=== PATIENT | female | born 1940 | race Caucasian/White ===

== ENCOUNTER 2018-08-01 11:08 | Emergency (ER) | payer MEDICARE, MEDICAID, SELFPAY ==
[2018-08-01 11:12] VITALS: BP 108/63; PULSE 76; RESP 14; TEMP 36.5; O2SAT 96
[2018-08-01 11:15] VITALS: RESP 16
--- NOTE | 2018-08-01 11:25 | DI.CT_ITS ---
SYMPTOMS/DIAGNOSIS: CONFUSION, AGGRESSIVE, ? ACUTE CVA, EPIGASTRIC ABD PAIN, NAUSEA, DIARRHEA, ? COLITIS/SBO/CHOLECYSTITIS/PANCREATITIS CRANIAL CT: Noncontrast cranial CT was performed. There is a moderate generalized cerebral atrophy and there are patchy areas of decreased attenuation in periventricular white matter consistent with microvascular ischemic changes. There is no evidence of acute intracranial hemorrhage, mass effect or midline shift. The paranasal sinuses and mastoid air cells appear well aerated as visualized. The orbital and temporal bone structures appear intact. CONCLUSION: No evidence of acute intracranial process. ABDOMINAL AND PELVIC CT: CT examination of the abdomen and pelvis was performed without contrast administration. Images obtained through the lung bases show changes of COPD and question minimal streaky left basilar consolidation. No gross free intraperitoneal air is seen. Note is made of Gamma nail in place in the proximal left femur. Small splenic granulomata are noted. The liver is grossly unremarkable by noncontrast criteria. The pancreas appears intact. No biliary dilatation seen. The adrenals and kidneys are unremarkable by noncontrast criteria. No evidence of urinary tract obstruction or calcification. There is an approximately 4.5 - 4.7 cm in diameter abdominal aortic aneurysm which appears to be infrarenal. No significant abdominal wall hernia seen. No significant abdominal or pelvic adenopathy seen. The appendix appears normal. There is no evidence of bowel obstruction or diverticulitis. CONCLUSION: Infrarenal abdominal aortic aneurysm measuring about 45 x 47 mm in diameter. No other significant acute findings.
--- NOTE | 2018-08-01 11:48 | W.ED.GENAD ---
Discharge Plan Disposition Patient Disposition: HOME Condition: Stable Discharge Details Chief Complaint: AMS/LOC Clinical Impression: Pneumonia, Verbally abusive behavior, History of dementia Primary Care Provider: None,None ED Provider: Charity Gomez Home Meds and New Rx's Prescriptions: New levofloxacin [Levaquin] 750 mg tablet 750 mg PO DAILY 4 Days Qty: 4 RF: 0 Continued multivitamin Tablet 1 tab PO DAILY RF: 0 acetaminophen 325 mg Tablet 650 mg PO PRN PRNRF: 0 aspirin 81 mg Tablet,Delayed Release (Dr/Ec) 81 mg PO DAILY RF: 0 pantoprazole 20 mg Tablet,Delayed Release (Dr/Ec) 20 mg PO DAILY RF: 0 bisacodyl [Biscolax] 10 mg Suppository 10 mg CO PRN PRNRF: 0 mirtazapine 15 mg Tablet 15 mg PO 1800 RF: 0 polyethylene glycol 3350 [Miralax] 17 gram/dose Powder 17 g PO DAILY RF: 0 Eliquis 5 mg Tablet 5 mg PO BID RF: 0 Discharge Instructions Instructions: Pneumonia (ED) Discharge Data Discharge Physician: Charity Gomez Medical Decision Making 78-year-old female with a history of dementia, COPD, laryngeal and uterine cancer, GERD, CKD, pulmonary embolism on Eliquis who is oriented to person at baseline from the [facility] after transfer there 2 days ago from [facility] status post a hip fracture who presents for confusion, increasing aggressive and violent behavior and poor p.o. intake. Patient complains of nausea and diarrhea with urinary frequency. She denies any abdominal pain to me but had epigastric tenderness to palpation. She was also coughing yellow sputum. Vitals within normal limits. Remainder of ENT exam within normal limits. Lungs clear to auscultation. She has epigastric tenderness to palpation but otherwise her abdomen is soft without rebound rigidity or guarding. No lower extremity edema. Patient appears at her mental status baseline per the [facility]. She appears calm upon my evaluation. Will place an IV, bolus IV fluids, labs, urinalysis, CT head, chest x-ray and CT abdomen and pelvis. 1150 --patient verbally aggressive and swearing at staff while attempting to place an IV. 1500 --patient has remained calm throughout stay in the ED. She has not been physically aggressive. She tolerated straight urinary catheter placement without any physical aggression. Labs and imaging reviewed. Normal white blood cell count to light sites. Negative troponin. Urinalysis negative. CT head negative. CT abdomen and pelvis notes diverticulosis and possibly mild diverticulitis in the appropriate clinical setting. Patient had no left lower quadrant tenderness, and normal white blood cell count so doubt diverticulitis at this time. Chest x-ray notes a possible left base pneumonia versus atelectasis. As patient had cough with yellow sputum, will treat for pneumonia. Discussed with Dr. Tracy -would like patient to have a mental health evaluation. States that patient was sent to the ED for concern of her verbally aggressive behavior as she stated to her roommate that she was going to slit her throat. Discussed that patient has dementia and has been verbally aggressive at times here but no physical aggression. She appears appropriate for discharge back to the [facility]. Dr. Tracy is okay with this plan as long as patient has a mental health evaluation first. Able to obtain the records from [facility] and patient had a left hip fracture which was repaired on 05/04/18. 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 She was transferred to the [facility] on 07/30/18. 1640 --mental health evaluated patient at bedside and does not find patient to be a risk to herself or others. She denies any suicidal ideation. She does not have the intent or means to carry out any physical injury to others. She has a history of dementia and is delusional with her statements and thought processes but otherwise had been relaxed and calm when speaking with mental health with no signs of physical aggression. Patient could likely benefit from being in a single room at the [facility]. There is also consideration for medications that can help with her behavior such as Ativan. Patient is cleared for discharge back. She was given 1 dose of Levaquin here as well as a prescription. She was able to eat a full meal here and no vomiting. Medical Records Medical records reviewed: Yes I reviewed the patient's medical records. Imaging Data Radiologic Study: Radiologist's impression: CT Head Without Contrast EXAM DATE/TIME: 08/01/2018 11:28 AM FINDINGS: Brain: No acute intracranial hemorrhage. There is mild diffuse heterogeneity of the white matter attenuation, consistent with chronic white matter ischemic changes. Mild cerebral atrophy Ventricles: Normal. No ventriculomegaly. Bones/joints: Unremarkable. No acute fracture. Sinuses: Visualized sinuses are unremarkable. No acute sinusitis. Mastoid air cells: Visualized mastoid air cells are unremarkable. No mastoid effusion. Soft tissues: Unremarkable. IMPRESSION: No acute intracranial hemorrhage. XR Chest, 2 Views EXAM DATE/TIME: 08/01/2018 11:28 AM FINDINGS: Lungs: Mild opacities in the left base may represent mild atelectasis or pneumonia. Pleural space: Unremarkable. No pleural effusion. No pneumothorax. Heart/Mediastinum: Unremarkable. No cardiomegaly. Vasculature: Tortuous aorta Bones/joints: Unremarkable. IMPRESSION: Mild opacities in the left base may represent mild atelectasis or pneumonia. CT Abdomen and Pelvis Without Contrast EXAM DATE/TIME: 08/01/2018 1:31 PM FINDINGS: Lower thorax: Mitral valve calcification Aortic valve calcification ABDOMEN: Liver: Normal. No mass. Gallbladder and bile ducts: Normal. No calcified stones. No ductal dilation. Pancreas: Normal. No ductal dilation. Spleen: Normal. No splenomegaly. Adrenals: Left adrenal adenoma Kidneys and ureters: Bilateral renal atrophy. Nonobstructing left renal calculus Stomach and bowel: Diverticulosis of the rectosigmoid. Mild pericolonic inflammatory changes may represent mild diverticulitis in the appropriate clinical setting. Appendix: No evidence of appendicitis. PELVIS: Bladder: Unremarkable as visualized. Reproductive: Unremarkable as visualized. ABDOMEN and PELVIS: Intraperitoneal space: Normal. No free air. No significant fluid collection. Bones/joints: Internal fixation device in the left hip Soft tissues: Unremarkable. Vasculature: Unruptured infrarenal abdominal aortic aneurysm 4.5 x 4.7 cm. 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 There may be stenosis in these regions.. Lymph nodes: Normal. No enlarged lymph nodes. IMPRESSION: 1. Unruptured infrarenal abdominal aortic aneurysm 4.5 x 4.7 cm. 2. Diverticulosis of the rectosigmoid. Mild pericolonic inflammatory changes may represent mild diverticulitis in the appropriate clinical setting. 3. 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 There may be stenosis in these regions.. Lab Data Lab results reviewed: Yes I reviewed the patient's lab results. ECG Data Attestation: I personally reviewed and interpreted this ECG (s) as follows: Interpretation: rate of 74, sinus, no acute ST elevation or depression. QTc 457. QRS 90. HPI General Mode of arrival: ambulatory. Date/Time Provider Initiated Documentation: 08/01/18 11:12. Limitations to Documentation: no limitations. Information obtained by: patient. HPI Narrative: Patient is a 78-year-old female with a history of vascular dementia, COPD, PE on Eliquis, laryngeal cancer, uterine cancer, chronic kidney disease who had a recent hospital admission at [facility] for a hip fracture and was transferred to the [facility] on Thursday 2 days ago. She presents from the [facility] for confusion, worsening aggressive and violent behavior, and poor p.o. intake. She is oriented to person at baseline and this is unchanged per the [facility]. Patient complaints at this time include nausea, diarrhea 4-5 times daily for the past 2 weeks, and no vomiting. She also admits to intermittent headache. She also admits to urinary frequency. She denied any abdominal pain but had epigastric tenderness on exam. She denies any chest pain or shortness of breath. Related Data Home Medications Medication Instructions Recorded Confirmed Eliquis 5 mg PO BID 08/01/18 08/01/18 acetaminophen 650 mg PO PRN PRN 08/01/18 08/01/18 aspirin 81 mg PO DAILY 08/01/18 08/01/18 bisacodyl [Biscolax] 10 mg CO PRN PRN 08/01/18 08/01/18 levofloxacin [Levaquin] 750 mg PO DAILY 4 Days #4 tab 08/01/18 mirtazapine 15 mg PO 1800 08/01/18 08/01/18 multivitamin 1 tab PO DAILY 08/01/18 08/01/18 pantoprazole 20 mg PO DAILY 08/01/18 08/01/18 polyethylene glycol 3350 [Miralax] 17 g PO DAILY 08/01/18 08/01/18 Previous Rx's Medication Instructions Recorded levofloxacin [Levaquin] 750 mg PO DAILY 4 Days #4 tab 08/01/18 Allergies Allergy/AdvReac Type Severity Reaction Status Date / Time No Known Allergies Allergy Unverified 08/01/18 11:24 General Stated Complaint: AMS/LOC MARIO: 3 Review of Systems Review of Systems All systems reviewed & are unremarkable except as noted in HPI and below Constitutional Reports as per HPI, Denies chills and Denies fever(s) Eyes Denies blurry vision ENT Denies dizziness, Denies sore throat and Denies throat swelling Cardiovascular Denies chest pain and Denies dyspnea Respiratory Denies cough and Denies dyspnea Gastrointestinal Reports abdominal pain, Reports diarrhea and Reports vomiting Genitourinary Denies hematuria, Reports urinary frequency and Denies dysuria Musculoskeletal Denies back pain and Denies numbness Integumentary/Breasts Denies lesions and Denies rash Neurologic Denies dizziness, Denies focal weakness and Denies numbness Allergic/Immunologic Denies throat swelling [facility] Medical History Chronic kidney disease (Acute) Laryngeal cancer (Acute) Uterine cancer (Acute) COPD (chronic obstructive pulmonary disease) (Chronic) Dementia (Chronic) GERD (gastroesophageal reflux disease) (Chronic) Pulmonary embolism (Chronic) Surgical History H/O bilateral salpingo-oophorectomy (Acute) History of hysterectomy (Chronic) Social History Smoking/Tobacco Use Status: Former Tobacco Use Details: unknown Drug use: Never Exam Const General: cooperative and no acute distress Orientation: alert, awake, oriented to person, not oriented to place and not oriented to time HENMT Head: normal to inspection Ears: hearing grossly normal bilaterally, external ears normal and TM's normal bilaterally General nose exam: external nose normal Face and sinus: normal facial exam Mouth: oral mucosae normal Throat: posterior oropharynx normal Eyes General: appearance normal, both eyes and all related structures Eyelids: eyelids normal Pupils: PERRL EOM: EOM intact bilaterally Neck Neck: normal visual inspection Lymphatic: no lymphadenopathy noted Chest Chest: normal inspection of the chest Resp Effort & Inspection: normal respiratory effort and able to speak in complete sentences Auscultation: clear to auscultation bilaterally Cardio Rate: regular rate Rhythm: regular rhythm GI Inspection: normal to inspection Palpation: soft, not firm, no guarding, no hepatosplenomegaly, no masses and tender Auscultation: normal bowel sounds Back/Spine/Pelvis Back: no CVA tenderness Skin General skin exam: no rashes or lesions noted Neuro General: alert and awake Cognition: normal cognition Speech: speech normal Gait: normal gait Motor: muscle tone normal throughout Sensory Exam: no sensory deficits noted Extrem General: normal to inspection, full ROM and no edema Psych Appearance: grossly normal Mental Status: mental status grossly normal Speech and Movement: speech and movement normal Affect: normal affect Thought Process: normal Course Vital Signs Temperature 97.7 F 08/01/18 11:12 Pulse 76 08/01/18 11:12 Respiratory Rate 14 08/01/18 11:12 Blood Pressure 108/63 08/01/18 11:12 Pulse Oximetry 96 08/01/18 11:12 Temperature 97.7 F 08/01/18 11:12 Temperature Source Temporal Artery Scan 08/01/18 11:12 Pulse 76 08/01/18 11:12 Respiratory Rate 16 08/01/18 11:15 Respiratory Effort Non-Labored 08/01/18 11:17 Respiratory Depth Normal 08/01/18 11:15 Respiratory Pattern Normal 08/01/18 11:15 Blood Pressure 108/63 08/01/18 11:12 Blood Pressure Position Sitting 08/01/18 11:12 Pulse Oximetry 96 08/01/18 11:12 Oxygen Delivery Method Room Air 08/01/18 11:12 Oxygen Flow Rate 0 08/01/18 11:12 Pain Level 0 08/01/18 11:12
[2018-08-01 11:52] LABS: Abs Immature Grans 0.01 k/cumm (0.0-0.09); Absolute Basophil Count 0.03 k/cumm (0.0-0.2); Absolute Eosinophil Count 0.19 k/cumm (0.0-0.7); Absolute Lymphocyte Count 1.16 k/cumm (1.2-3.4); Absolute Monocyte Count 0.71 k/cumm (0.11-0.7); Absolute Neutrophil Count 3.84 k/cumm (1.2-6.7); Basophils % 0.5; Eosinophils % 3.2; HGB 13.1 g/dL (12.0-15.5); Immature Grans % 0.2; Lymphocytes % 19.5; Mean Corp. HGB Concentration 32.8 g/dL (32.0-36.0); Mean Corpuscular Hemoglobin 31.3 pg (27.0-33.0); Mean Corpuscular Volume 95.5 fL (80-95); Mean Platelet Volume 9.9 fL (8.0-11.0); Neutrophils % 64.6; Platelet Count 238 x1000/uL (130-400); RBC 4.19 m/cumm (4.00-5.20); White Blood Cell Count 5.94 k/cumm (4.4-10.8)
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
[2018-08-01 12:04] LABS: ALT 11 U/L (12-78); AST 19 U/L (15-37); Albumin 3.5 g/dL (3.4-5.0); Alkaline Phosphatase 102 U/L (46-116); Anion Gap 11.7 mmol/L (3-11); BUN 24 mg/dL (7-18); Bilirubin, Total 0.7 mg/dL (0.2-1.0); CO2 23.3 mmol/L (21.0-32.0); CREATININE 1.23 mg/dL (0.55-1.02); Calcium 9.9 mg/dL (8.5-10.1); Chloride 105 mmol/L (98-107); Estimated GFR 42.23 (mL/min/1.73m2); Glucose 105 mg/dL (70-100); Lipase 107 U/L (73-393); Potassium 4.2 mmol/L (3.5-5.1); Sodium 140 mmol/L (136-145); Total Protein 7.4 g/dL (6.4-8.2)
[2018-08-01 12:18] LABS: Troponin I < 0.02 ng/mL (0.00-0.06)
[2018-08-01 12:25] LABS: Bilirubin Negative (Negative); Blood Negative (Negative); Clarity Clear; Glucose Negative (Negative); Ketones Negative (Negative); Leukocyte Esterase Negative (Negative); Nitrite Negative (Negative); Specific Gravity 1.015 (1.005-1.025); Urobilinogen 0.2 EU/dL (Up TO 0.2)
--- NOTE | 2018-08-01 14:00 | DI.RAD_ITS ---
SYMPTOMS/DIAGNOSIS: COUGH, ? PNEUMONIA AP AND LATERAL CHEST: The heart is at the upper limits of normal in size. There are apparent diffuse changes of COPD, minimal left basilar infiltrate is suspected. No pleural effusion seen. CONCLUSION: Question left basilar infiltrate, appropriate follow up studies requested.
--- NOTE | 2018-08-01 14:20 | DI.VRAD_ITS ---
EXAM: CT Head Without Contrast EXAM DATE/TIME: 08/01/2018 11:28 AM CLINICAL HISTORY: 78 years old, female; Signs and symptoms; Altered mental status/memory loss TECHNIQUE: Imaging protocol: Axial computed tomography images of the head/brain without contrast. Coronal and sagittal reformatted images were created and reviewed. COMPARISON: No relevant prior studies available. FINDINGS: Brain: No acute intracranial hemorrhage. There is mild diffuse heterogeneity of the white matter attenuation, consistent with chronic white matter ischemic changes. Mild cerebral atrophy Ventricles: Normal. No ventriculomegaly. Bones/joints: Unremarkable. No acute fracture. Sinuses: Visualized sinuses are unremarkable. No acute sinusitis. Mastoid air cells: Visualized mastoid air cells are unremarkable. No mastoid effusion. Soft tissues: Unremarkable. IMPRESSION: No acute intracranial hemorrhage. Dictated and Authenticated by: Forrest Roman MD. Ordering:RALEIGH Nash MD
--- NOTE | 2018-08-01 14:30 | DI.VRAD_ITS ---
EXAM: CT Abdomen and Pelvis Without Contrast EXAM DATE/TIME: 08/01/2018 1:31 PM CLINICAL HISTORY: 78 years old, female; Pain; Abdominal pain; Epigastric; Patient HX: Patient unable to follow breathing instructions, and unable to move arms above head for exam. TECHNIQUE: Imaging protocol: Axial computed tomography images of the abdomen and pelvis without contrast. Coronal and sagittal reformatted images were created and reviewed. Radiation optimization: All CT scans at this facility use at least one of these dose optimization techniques: automated exposure control; mA and/or kV adjustment per patient size (includes targeted exams where dose is matched to clinical indication); or iterative reconstruction. COMPARISON: No relevant prior studies available. FINDINGS: Lower thorax: Mitral valve calcification Aortic valve calcification ABDOMEN: Liver: Normal. No mass. Gallbladder and bile ducts: Normal. No calcified stones. No ductal dilation. Pancreas: Normal. No ductal dilation. Spleen: Normal. No splenomegaly. Adrenals: Left adrenal adenoma Kidneys and ureters: Bilateral renal atrophy. Nonobstructing left renal calculus Stomach and bowel: Diverticulosis of the rectosigmoid. Mild pericolonic inflammatory changes may represent mild diverticulitis in the appropriate clinical setting. Appendix: No evidence of appendicitis. PELVIS: Bladder: Unremarkable as visualized. Reproductive: Unremarkable as visualized. ABDOMEN and PELVIS: Intraperitoneal space: Normal. No free air. No significant fluid collection. Bones/joints: Internal fixation device in the left hip Soft tissues: Unremarkable. Vasculature: Unruptured infrarenal abdominal aortic aneurysm 4.5 x 4.7 cm. 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 There may be stenosis in these regions.. Lymph nodes: Normal. No enlarged lymph nodes. IMPRESSION: 1. Unruptured infrarenal abdominal aortic aneurysm 4.5 x 4.7 cm. 2. Diverticulosis of the rectosigmoid. Mild pericolonic inflammatory changes may represent mild diverticulitis in the appropriate clinical setting. 3. 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 There may be stenosis in these regions.. Dictated and Authenticated by: Forrest Roman MD. Ordering:RALEIGH Nash MD
--- NOTE | 2018-08-01 14:31 | DI.VRAD_ITS ---
EXAM: XR Chest, 2 Views EXAM DATE/TIME: 08/01/2018 11:28 AM CLINICAL HISTORY: 78 years old, female; Signs and symptoms; Cough; Patient HX: Patient unable to follow breathing instructions . TECHNIQUE: Imaging protocol: XR of the chest, 2 views. COMPARISON: No relevant prior studies available. FINDINGS: Lungs: Mild opacities in the left base may represent mild atelectasis or pneumonia. Pleural space: Unremarkable. No pleural effusion. No pneumothorax. Heart/Mediastinum: Unremarkable. No cardiomegaly. Vasculature: Tortuous aorta Bones/joints: Unremarkable. IMPRESSION: Mild opacities in the left base may represent mild atelectasis or pneumonia. Dictated and Authenticated by: Forrest Roman MD. Ordering:RALEIGH Nash MD
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
[2018-08-01] MEDS: Nystatin POWDER 15 GM JAR (16:37)
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
[2018-08-01] MEDS: levoFLOXacin 500 MG, levoFLOXacin 250 MG 750 MG PO (17:32)
[2018-08-01 17:35] VITALS: BP 92/63; PULSE 76; RESP 16; TEMP 36.9; O2SAT 97
== END 2018-08-01 17:56 | disposition home or self-care (01) ==
PROVIDERS: Emergency Provider Physician Assistant
DX: J18.9 Pneumonia, unspecified organism (principal); F03.91 Unspecified dementia, unspecified severity, with behavioral disturbance; R91.8 Other nonspecific abnormal finding of lung field; J44.9 Chronic obstructive pulmonary disease, unspecified; N18.6 End stage renal disease
CPT/HCPCS: 36415; 51701; 80053; 83690; 93005; 99285; 70450; 71046; 74176; 81003; 83735; 84484; 85025; 93010; J3490

== ENCOUNTER 2019-02-13 09:43 | Emergency (ER) | payer MEDICARE, MEDICAID, SELFPAY ==
--- NOTE | 2019-02-13 09:36 | W.ED.GENAD ---
Discharge Plan Disposition Patient Disposition: SNF (LEVEL 1) [facility] Condition: Fair Discharge Details Chief Complaint: Orthopedic Clinical Impression: Fall, Contusion Primary Care Provider: Unknown,Unknown ED Provider: Ellyn Soriano [place] Meds and New Rx's Prescriptions: Continued quetiapine 25 mg Tablet 25 mg PO TID RF: 0 hydrocodone-acetaminophen 5-325 mg Tablet 1 tab PO BID RF: 0 lorazepam 2 mg/mL Solution 1 mg Q4H PRN PRNRF: 0 sennosides-docusate sodium [Senna Plus] 8.6-50 mg Tablet 3 tab PO HS RF: 0 acetaminophen [Acetaminophen Extra Strength] 500 mg Tablet 1,000 mg PO TID RF: 0 ergocalciferol (vitamin D2) [Drisdol] 50,000 unit Capsule 50,000 unit PO QMONTH RF: 0 Salonpas 3.1-10-6 % Adhesive Patch,Medicated 1 patch TOPICAL TID RF: 0 multivitamin Tablet 1 tab PO DAILY RF: 0 aspirin 81 mg Tablet,Delayed Release (Dr/Ec) 81 mg PO DAILY RF: 0 pantoprazole 20 mg Tablet,Delayed Release (Dr/Ec) 20 mg PO DAILY RF: 0 bisacodyl [Biscolax] 10 mg Suppository 10 mg [place] PRN PRNRF: 0 mirtazapine 15 mg Tablet 30 mg PO 1800 RF: 0 polyethylene glycol 3350 [Miralax] 17 gram/dose Powder 17 g PO DAILY RF: 0 Eliquis 5 mg Tablet 5 mg PO BID RF: 0 Discharge Instructions Instructions: Contusion in Adults (ED) Additional Instructions: Encourage hydration. Blaire did not receive any medications here today. Seems to be comfortable and imaging is reassuring with no fractures or evidence of intracranial bleed. Please seek care urgently with new or worsening symptoms. Otherwise, please follow-up with primary care next week. Medical Decision Making Patient is a 78 year old female with a history of CKD, COPD, dementia, GERD, laryngeal cancer, PE, uterine cancer presenting today after fall out of bed. Fall was unwitnessed. Patient is unaware of the events leading up to the fall of the fall itself. She is not oriented. However, this does not be patient's baseline from previous visits. She is frequently yelling and swearing at staff. She expressing pain essentially everywhere when asked. However, when patient is distracted, she does not seem to have reproducible pain except for in the hips. Test, she is having pain more in the right hip but per EMS the [facility] was more concerned about left hip pain given the mechanism of the fall. She does not have evidence of head trauma but is endorsing head pain when asked directly and patient is on Eliquis. She is not having pain in her neck with palpation, no spinal tenderness, no chest pain. Plan for head CT, bilateral hip x-ray. She did have the left hip repaired historically. Contacted by the [facility]. Patient fell out of bed, landed on her left side. Was expressing left hip pain duration staff immediately after the fall. Reports the following immediately. Her yell. Did not believe that she lost consciousness she did not see evidence of trauma elsewhere. Saw swelling on the left hip. Patient is typically demented, combative at baseline. Vital signs were normal after fall per nursing report. The patient is primarily endorsing hip pain, PGA right hip pain at this time, feel x-rays of bilateral hips is appropriate. We will also CT the patient says she is on Eliquis. Again, patient is quite difficult to assess and she is not agreeable to exam.. When we are not actively examining the patient she is resting comfortably and falls asleep quickly. She is not endorsing pain when questioned of this. FINDINGS: Brain: Moderate cerebral atrophy. Moderate low attenuation in the periventricular white matter, consistent with small vessel ischemic change. No hemorrhage. Ventricles: Normal. No ventriculomegaly. Bones/joints: Unremarkable. No acute fracture. Sinuses: Mild mucosal thickening, right maxillary sinus. Mastoid air cells: Mastoid air cells are hypoaerated bilaterally. Soft tissues: Unremarkable. IMPRESSION: 1. No acute intracranial abnormalities. 2. No change from the previous study. FINDINGS: Bones/joints: Surgical hardware, left hip. No acute fracture or dislocation. Osteopenia. Soft tissues: Non-contributory. IMPRESSION: No acute findings. FINDINGS: Bones/joints: Osteopenia. The joint space is well-maintained. No fracture or dislocation. Soft tissues: Non-contributory. IMPRESSION: No acute findings. Patient does not appear to be in any discomfort at this time. She is not outwardly expressed any pain without prompting. As she does quickly fall asleep, we DC'd the order for the Vicodin that was initially ordered for her presumed discomfort. Imaging is reassuring. Patient will be discharged back to her place of residence. We have asked nursing staff to continue with neurologic testing. It was noted that she has a small area of skin breakdown on her bottom we passed this along for continued chronic care. Patient was able to turn and pivot with a 2 assist which sounds to be her baseline without any evidence of discomfort per nursing staff. Patient seems to be at her baseline. She did begin addressing her discomfort prior to discharge and 1 extra strength Tylenol was given. Advised to follow-up with primary care next week for reevaluation. I will send her back to the emergency department any new or worsening symptoms. I did call the patient's significant other to discuss today's visit and results. HPI General Mode of arrival: EMS. Date/Time Provider Initiated Documentation: 02/13/19 09:53. Limitations to Documentation: altered mental status (Dementia). Information obtained by: patient, EMS and RN notes reviewed. HPI Narrative: Patient jaime 78 year old female with history of dementia is largely confused at baseline, presenting today after fall. Brought in via EMS for unwitnessed fall. Per report, the patient fell out of bed and is believed that she let on her left side. Patient is endorsing pain everywhere. She has chronic pain in left hip and knee limiting her mobility per nursing report. They report that she is a 2 person assist and is able to walk a maximum of 5 steps, typically is sedentary. Related Data Home Medications Medication Instructions Recorded Confirmed Eliquis 5 mg PO BID 08/01/18 02/13/19 aspirin 81 mg PO DAILY 08/01/18 02/13/19 bisacodyl [Biscolax] 10 mg KS PRN PRN 08/01/18 02/13/19 mirtazapine 30 mg PO 1800 08/01/18 02/13/19 multivitamin 1 tab PO DAILY 08/01/18 02/13/19 pantoprazole 20 mg PO DAILY 08/01/18 02/13/19 polyethylene glycol 3350 [Miralax] 17 g PO DAILY 08/01/18 02/13/19 Salonpas 1 patch TOPICAL TID 02/13/19 02/13/19 acetaminophen [Acetaminophen Extra 1,000 mg PO TID 02/13/19 02/13/19 Strength] ergocalciferol (vitamin D2) 50,000 unit PO QMONTH 02/13/19 02/13/19 [Drisdol] hydrocodone-acetaminophen 1 tab PO BID 02/13/19 02/13/19 lorazepam 1 mg Q4H PRN PRN 02/13/19 02/13/19 quetiapine 25 mg PO TID 02/13/19 02/13/19 sennosides-docusate sodium [Senna 3 tab PO HS 02/13/19 02/13/19 Plus] Allergies Allergy/AdvReac Type Severity Reaction Status Date / Time No Known Allergies Allergy Unverified 02/13/19 11:15 General MARIO: 3 Review of Systems Review of Systems ROS Unobtainable: Unobtainable due to mental condition [facility] Medical History Chronic kidney disease (Acute) COPD (chronic obstructive pulmonary disease) (Chronic) Dementia (Chronic) GERD (gastroesophageal reflux disease) (Chronic) Laryngeal cancer (Acute) Pulmonary embolism (Chronic) Uterine cancer (Acute) Surgical History H/O bilateral salpingo-oophorectomy (Acute) History of hysterectomy (Chronic) Social History Smoking/Tobacco Use Status: Former Tobacco Use Details: unknown Drug use: Never Additional Social history: unable to assess- resident @ [facility] Exam Const General: uncooperative (Yelling and swearing at staff), comfortable, no acute distress, well developed and anxious Nutritional Appearance: average body habitus and well nourished Orientation: alert, awake and oriented to person [facility] Head: normal to inspection, no palpable skull fracture, normocephalic and atraumatic Ears: hearing grossly normal bilaterally, external ears normal and TM's normal bilaterally General nose exam: external nose normal Mouth: oral mucosae normal, lip normal and tongue normal Throat: posterior oropharynx normal Eyes General: appearance normal, both eyes and all related structures Visual Arnold: normal visual arnold by confrontation Alignment and Position: alignment normal Periorbital: periorbital findings normal Eyelids: eyelids normal Conjunctivae: conjunctivae normal Pupils: PERRL EOM: EOM intact bilaterally Neck Neck: normal visual inspection, full ROM, no lymphadenopathy, no meningeal signs, trachea midline and supple Chest Chest: normal inspection of the chest, normal palpation of entire chest wall, no crepitus and no localized rib tenderness Resp Effort & Inspection: normal respiratory effort, able to speak in complete sentences and no respiratory distress Auscultation: clear to auscultation bilaterally, no rales, no rhonchi and no wheezes Cardio Rate: regular rate Rhythm: regular rhythm Heart Sounds: S1 normal and S2 normal GI Inspection: normal to inspection, no abdominal wall ecchymosis, no edema and non-distended Palpation: soft, no hepatosplenomegaly, not firm, no guarding, no pulsatile masses, not rigid and nontender Auscultation: normal bowel sounds Back/Spine/Pelvis Back: no CVA tenderness Cervical Spine: normal cervical lordosis and cervical ROM normal Thoracic/Lumbar Spine: thoracic and lumbar spine normal to inspection, thoraco-lumbar ROM normal, No thoraco-lumbar ROM limited, No thoraco-lumbar spasm and No thoracic spinal tenderness Pelvis: no pain with anterior-posterior compression and no pain with lateral compression Skin General skin exam: no rashes or lesions noted Lesions: no lesions Rashes: no rashes Trauma: no lacerations or abrasions Wounds: no wounds Neuro General: alert, awake, not oriented x3, tone normal and moves all extremities Cranial Nerves: CN's II-XI intact bilaterally Cognition: normal cognition (Sounds to be baseline for patient) Speech: speech normal Motor: muscle tone normal throughout Sensory Exam: no sensory deficits noted (no saddle paresthesias) Extrem General: normal to inspection, normal capillary refill, no pedal edema and no calf tenderness Right lower extremity: normal to inspection, normal capillary refill, no joint enlargement, hip/thigh Details: tenderness Location: of the hip Location: laterally and normal ROM (Patient will not let me range her hip); no swelling, no abrasions, no lacerations, no ecchymosis, no crepitus and no deformity and foot Details: toes with normal ROM and vascular exam Details: dorsalis pedis pulse present and normal capillary refill; no tenderness; no cyanosis and no edema Left lower extremity: normal to inspection, normal capillary refill, no joint enlargement, hip/thigh Details: tenderness Location: of the hip Location: laterally; no swelling, ROM abnormal (Patient will not let me range her hip), no abrasions, no lacerations, no ecchymosis, no crepitus and no deformity and foot Details: normal capillary refill and vascular exam Details: dorsalis pedis pulse present and normal capillary refill; no tenderness; no cyanosis and no edema Psych Appearance: grossly normal
[2019-02-13 09:43] VITALS: BP 130/66; PULSE 63; RESP 22; TEMP 36.6; O2SAT 96
[2019-02-13 09:59] VITALS: PULSE 63; RESP 15
--- NOTE | 2019-02-13 10:20 | DI.CT_ITS ---
EXAM: CT HEAD WO CLINICAL HISTORY: fall. TECHNIQUE: COMPARISON: CT HEAD WO from 08/01/2018 FINDINGS: Noncontrast cranial CT was performed. There is marked generalized cerebral atrophy and there are are as of patchy decreased attenuation in periventricular white matter consistent with microvascular isch emic changes. No evidence of acute intracranial hemorrhage mass effect or midline shift. No gross c alvarial fracture. Visualized paranasal sinuses and mastoid air cells are fairly well aerated. IMPRESSION: No evidence of acute intracranial injury.
--- NOTE | 2019-02-13 10:23 | DI.RAD_ITS ---
EXAM: XR HIP LT AP LAT ONLY INDICATION: unwitnessed fall. COMPARISON: XR HIP RT COMPLETE AP PELVIS from 02/13/2019 TECHNIQUE: 2D digital imaging was performed. FINDINGS: Two views were obtained. Gamma nail noted transfixing left femoral neck fracture. No new fracture i dentified. IMPRESSION:
--- NOTE | 2019-02-13 10:30 | DI.RAD_ITS ---
EXAM: XR HIP RT COMPLETE AP PELVIS INDICATION: unwitnessed fall. COMPARISON: No exams were available for comparison TECHNIQUE: 2D digital imaging was performed. FINDINGS: Three views were obtained. Gamma nail noted in the left femur. No evident right femoral fracture se en. IMPRESSION:
--- NOTE | 2019-02-13 10:36 | DI.VRAD_ITS ---
PROCEDURE INFORMATION: Exam: CT Head Without Contrast Exam date and time: 02/13/2019 9:57 AM Clinical history: 78 years old, female; Injury or trauma; Initial encounter; Blunt trauma (contusions or hematomas); Consciousness not specified; Injury details: Unwitnessed fall. TECHNIQUE: Imaging protocol: Computed tomography of the head without contrast. Radiation optimization: All CT scans at this facility use at least one of these dose optimization techniques: automated exposure control; mA and/or kV adjustment per patient size (includes targeted exams where dose is matched to clinical indication); or iterative reconstruction. COMPARISON: CT HEAD WO 08/01/2018 1:40 PM FINDINGS: Brain: Moderate cerebral atrophy. Moderate low attenuation in the periventricular white matter, consistent with small vessel ischemic change. No hemorrhage. Ventricles: Normal. No ventriculomegaly. Bones/joints: Unremarkable. No acute fracture. Sinuses: Mild mucosal thickening, right maxillary sinus. Mastoid air cells: Mastoid air cells are hypoaerated bilaterally. Soft tissues: Unremarkable. IMPRESSION: 1. No acute intracranial abnormalities. 2. No change from the previous study. Dictated and Authenticated by: Milind Anderson MD. Ordering:RAFAT Ragland MD
--- NOTE | 2019-02-13 10:37 | DI.VRAD_ITS ---
PROCEDURE INFORMATION: Exam: XR Right Hip with Pelvis when Performed Exam date and time: 02/13/2019 9:57 AM Clinical history: 78 years old, female; Hip pain; Right hip; Patient HX: Unwitnessed fall TECHNIQUE: Imaging protocol: XR Right hip with pelvis when performed. Views: 2 or 3 views. COMPARISON: CT ABDOMEN PELVIS WO 08/01/2018 1:45 PM FINDINGS: Bones/joints: Osteopenia. The joint space is well-maintained. No fracture or dislocation. Soft tissues: Non-contributory. IMPRESSION: No acute findings. Dictated and Authenticated by: Milind Anderson MD. Ordering:RAFAT Ragland MD
--- NOTE | 2019-02-13 10:37 | DI.VRAD_ITS ---
PROCEDURE INFORMATION: Exam: XR Left Hip with Pelvis when Performed Exam date and time: 02/13/2019 9:57 AM Clinical history: 78 years old, female; Hip pain; Left hip TECHNIQUE: Imaging protocol: XR Left hip with pelvis when performed. Views: 2 or 3 views. COMPARISON: CT ABDOMEN PELVIS WO 08/01/2018 1:45 PM FINDINGS: Bones/joints: Surgical hardware, left hip. No acute fracture or dislocation. Osteopenia. Soft tissues: Non-contributory. IMPRESSION: No acute findings. Dictated and Authenticated by: Milind Anderson MD. Ordering:RAFAT Ragland MD
[2019-02-13 11:02] VITALS: O2SAT 98
[2019-02-13 11:03] VITALS: BP 141/76; PULSE 66
[2019-02-13] MEDS: Acetaminophen 500 MG TAB (11:10)
[2019-02-13 11:20] VITALS: BP 141/76; PULSE 67; RESP 16; TEMP 36.6; O2SAT 98
== END 2019-02-13 11:20 | disposition skilled nursing facility (03) ==
PROVIDERS: Emergency Provider Physician Assistant
DX: S70.02XA Contusion of left hip, initial encounter (principal); W06.XXXA Fall from bed, initial encounter; F03.91 Unspecified dementia, unspecified severity, with behavioral disturbance; J44.9 Chronic obstructive pulmonary disease, unspecified; N18.9 Chronic kidney disease, unspecified; Z79.01 Long term (current) use of anticoagulants
CPT/HCPCS: 99284; 70450; 73502

== ENCOUNTER 2019-06-07 11:32 | Outpatient (REF) | payer MEDICARE, MEDICAID, SELFPAY ==
[2019-06-07 12:37] LABS: Absolute Basophil Count 0.02 k/cumm (0.0-0.2); Absolute Eosinophil Count 0.16 k/cumm (0.0-0.7); Absolute Lymphocyte Count 1.38 k/cumm (1.2-3.4); Absolute Monocyte Count 0.71 k/cumm (0.11-0.7); Absolute Neutrophil Count 2.43 k/cumm (1.2-6.7); Basophils % 0.4; Eosinophils % 3.4; HCT 39.9 % (36.0-46.0); HGB 12.8 g/dL (12.0-15.5); Lymphocytes % 29.4; Mean Corp. HGB Concentration 32.1 g/dL (32.0-36.0); Mean Corpuscular Hemoglobin 30.3 pg (27.0-33.0); Mean Corpuscular Volume 94.3 fL (80-95); Mean Platelet Volume 10.5 fL (8.0-11.0); Monocytes % 15.1; Neutrophils % 51.7; Platelet Count 183 x1000/uL (130-400); RBC 4.23 m/cumm (4.00-5.20); RBC Distribution Width 12.3 % (11.7-14.6)
[2019-06-07 13:12] LABS: Anion Gap 8.9 mmol/L (3-11); BUN 29 mg/dL (7-18); CO2 24.1 mmol/L (21.0-32.0); CREATININE 1.05 mg/dL (0.55-1.02); Calcium 8.8 mg/dL (8.5-10.1); Chloride 110 mmol/L (98-107); Estimated GFR 50.56 (mL/min/1.73m2); Glucose 85 mg/dL (74-106); Sodium 143 mmol/L (136-145)
== END 2019-06-07 11:52 ==
LOC: LBN 11:32
PROVIDERS: PCP Family Medicine; Visit Provider Family Medicine
DX: I10 Essential (primary) hypertension (principal); R53.83 Other fatigue
CPT/HCPCS: 80048; 85025

== ENCOUNTER 2019-12-16 16:09 | Outpatient (REF) | payer MEDICARE, MEDICAID, SELFPAY ==
[2019-12-16 16:48] LABS: Abs Immature Grans 0.01 10^3/uL (0.0-0.06); Absolute Basophil Count 0.03 10^3/uL (0.0-0.2); Absolute Eosinophil Count 0.06 10^3/uL (0.0-0.7); Absolute Lymphocyte Count 0.89 10^3/uL (1.2-3.4); Absolute Monocyte Count 0.48 10^3/uL (0.1-0.8); Absolute Neutrophil Count 3.52 10^3/uL (1.2-6.7); Basophils % 0.6; Eosinophils % 1.2; HCT 41.1 % (36.0-46.0); HGB 13.2 g/dL (11.2-15.7); Immature Grans % 0.2; Lymphocytes % 17.8; MCH 29.7 pg (27.0-33.0); MCHC 32.1 % (32.0-36.0); MCV 92.4 fL (80-95); MPV 10.3 fL (8.0-11.0); Monocytes % 9.6; Neutrophils % 70.6; Nucleated RBC 0 %; Platelet Count 175 10^3/uL (130-400); RBC 4.45 10^6/uL (3.93-5.22); RDW 12.5 % (11.7-14.6); RDW-SD 42.5 fL; WBC 4.99 10^3/uL (4.4-10.8)
[2019-12-16 17:11] LABS: Anion Gap 9.4 mmol/L (3-11); BUN 23 mg/dL (7-18); CO2 22.6 mmol/L (21.0-32.0); CREATININE 1.26 mg/dL (0.55-1.02); Chloride 104 mmol/L (98-107); Estimated GFR 40.96 (mL/min/1.73m2); Glucose 94 mg/dL (74-106); Potassium 4.8 mmol/L (3.5-5.1); Sodium 136 mmol/L (136-145)
[2019-12-16 19:33] LABS: Bilirubin Negative (Negative); Blood Moderate (Negative); Clarity Cloudy (Clear); Glucose Negative (Negative); Ketones Negative (Negative); Leukocyte Esterase Moderate (Negative); Nitrite Negative (Negative); Specific Gravity >= 1.030 (1.005-1.025); Urobilinogen 0.2 EU/dL (Up TO 0.2)
[2019-12-16 20:06] LABS: Bacteria Packed HPF (Negative); C & S Indicated? C&S Done As Ordered; WBC >50 HPF (0-5)
== END 2019-12-16 16:29 ==
LOC: NCHCN 16:09
PROVIDERS: PCP Family Medicine; Visit Provider Family Medicine
DX: N18.9 Chronic kidney disease, unspecified (principal); F03.90 Unspecified dementia, unspecified severity, without behavioral disturbance, psychotic disturbance, mood disturbance, and anxiety; R30.0 Dysuria
CPT/HCPCS: 80048; 87077; 81003; 81015; 85025; 87086; 87186

== ENCOUNTER 2020-05-15 00:54 | Outpatient (CLI) | payer MEDICARE, MEDICAID, SELFPAY ==
--- NOTE | 2020-05-15 | DI.RAD_ITS ---
EXAM: XR HIP LT COMPLETE AP PELVIS INDICATION: FELL, LT HIP PAIN, ? FX. COMPARISON: CR,XR XR HIP LT AP LAT ONLY from 02/13/2019 TECHNIQUE: 2D digital imaging was performed. FINDINGS: Hardware is again noted in the proximal left femur. There there has been continued healing at the fr acture site. There is no change in hardware or fracture alignment. Since the previous exam, there i s a new fracture in the left inferior pubic ramus. No additional new fractures are visualized. Dege nerative changes are noted in the left SI joint. There are mild degenerative changes of the right hi p. 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 IMPRESSION: Acute fracture of the left inferior pubic ramus. Continued healing of of the left femoral fracture. DATA REPOSITORY: RADIATION DOSE DELIVERED:
== END 2020-05-15 01:14 ==
PROVIDERS: PCP Family Medicine; Visit Provider Family Medicine
DX: S32.592A Other specified fracture of left pubis, initial encounter for closed fracture (principal); S72.8X2A Other fracture of left femur, initial encounter for closed fracture
CPT/HCPCS: 73502

== ENCOUNTER 2020-07-04 14:46 | Outpatient (REF) | payer MEDICARE, MEDICAID, SELFPAY ==
[2020-07-04 15:36] LABS: Abs Immature Grans 0.01 10^3/uL (0.0-0.06); Absolute Basophil Count 0.03 10^3/uL (0.0-0.2); Absolute Eosinophil Count 0.06 10^3/uL (0.0-0.7); Absolute Lymphocyte Count 1.22 10^3/uL (1.2-3.4); Absolute Monocyte Count 0.54 10^3/uL (0.1-0.8); Absolute Neutrophil Count 2.06 10^3/uL (1.2-6.7); Basophils % 0.8; Eosinophils % 1.5; HCT 37.8 % (36.0-46.0); HGB 11.9 g/dL (11.2-15.7); Immature Grans % 0.3; Lymphocytes % 31.1; MCH 29.5 pg (27.0-33.0); MCHC 31.5 % (32.0-36.0); MCV 93.6 fL (80-95); MPV 9.5 fL (8.0-11.0); Monocytes % 13.8; Neutrophils % 52.5; Nucleated RBC 0 %; Platelet Count 217 10^3/uL (130-400); RBC 4.04 10^6/uL (3.93-5.22); RDW-SD 44.6 fL; WBC 3.92 10^3/uL (4.4-10.8)
[2020-07-04 15:40] LABS: Anion Gap 9.1 mmol/L (3-11); BUN 19 mg/dL (7-18); CO2 22.9 mmol/L (21.0-32.0); CREATININE 1.2 mg/dL (0.55-1.02); Calcium 8.6 mg/dL (8.5-10.1); Chloride 105 mmol/L (98-107); Estimated GFR 43.23 (mL/min/1.73m2); Glucose 78 mg/dL (74-106); Potassium 4.3 mmol/L (3.5-5.1); Sodium 137 mmol/L (136-145)
== END 2020-07-04 14:47 | disposition home or self-care (01) ==
LOC: NCHCN 14:46
PROVIDERS: PCP Family Medicine; Visit Provider Family Medicine
DX: G30.1 Alzheimer's disease with late onset (principal); F34.1 Dysthymic disorder; N18.30 Chronic kidney disease, stage 3 unspecified; J43.8 Other emphysema
CPT/HCPCS: 80048; 85025